=== PATIENT | female | born 1935 | race Caucasian/White ===

== ENCOUNTER 2016-09-04 14:51 | Outpatient (CLI) | payer MEDICARE, OTHER | END 2016-09-04 14:52 | disposition home or self-care (01) | DX: E66.2 Morbid (severe) obesity with alveolar hypoventilation (principal) ==

== ENCOUNTER 2016-09-13 | Outpatient (CLI) | payer MEDICARE, OTHER | END 2016-09-13 23:31 | disposition critical access hospital (66) | CPT/HCPCS: A0425; A0429 ==

== ENCOUNTER 2016-09-13 23:40 | Inpatient (IN) | payer MEDICARE, OTHER ==
[2016-09-14] MEDS ORDERED: MAG HYDROX/AL HYDROX/SIMETH 30 ML UDC PO STA (08:03)
[2016-09-14] MEDS ORDERED: OXYBUTYNIN 5MG TABLET PO PRN (08:11)
[2016-09-14] MEDS ORDERED: MAG HYDROX/AL HYDROX/SIMETH 30 ML UDC ONE (08:18)
[2016-09-14] MEDS ORDERED: METOPROLOL SUCCINATE 50 MG TABLET PO SCH (09:00)
[2016-09-14] MEDS ORDERED: ASCORBIC ACID CHEW 500 MG TABLET PO SCH (09:00)
[2016-09-14] MEDS ORDERED: cefTRIAXone 500 MG VIAL IVP SCH (09:00)
[2016-09-14] MEDS ORDERED: IOPAMIDOL-300 100 ML VIAL IVP ONE (09:28)
[2016-09-14] MEDS ORDERED: ZINC OXIDE 20% OINT 28.35 GM TUBE TOP ONE (09:59)
[2016-09-14] MEDS ORDERED: LEVOTHYROXINE 25 MCG TABLET PO SCH (10:00)
[2016-09-14] MEDS ORDERED: CHOLECALCIFEROL 5,000 UNIT CAPSULE PO SCH (10:00)
[2016-09-14] MEDS ORDERED: SODIUM CHLORIDE 0.9% IV SCH (10:00)
[2016-09-14] MEDS ORDERED: VANCOMYCIN PER PHARMACY IV SCH (10:00)
[2016-09-14] MEDS ORDERED: POTASSIUM CHLORIDE 10 MEQ CAPSULE PO SCH (10:00)
[2016-09-14] MEDS ORDERED: cefTRIAXone 1 GM in SODIUM CHLORIDE 0.9% MINIBAG 100 ML IV SCH (10:00)
[2016-09-14] MEDS ORDERED: LOSARTAN 50 MG TABLET PO SCH (10:00)
[2016-09-14] MEDS ORDERED: PANTOPRAZOLE 40 MG TABLET PO SCH (10:00)
[2016-09-14] MEDS ORDERED: buPROPion SR 150 MG TABLET PO SCH (10:00)
[2016-09-14] MEDS ORDERED: FUROSEMIDE 20 MG TABLET PO SCH (10:00)
[2016-09-14] MEDS ORDERED: diltiaZEM CD 120 MG CAPSULE PO SCH (10:00)
[2016-09-14] MEDS ORDERED: ASPIRIN EC 81 MG TABLET PO SCH (10:00)
[2016-09-14] MEDS: IPRATROPIUM/ALBUTEROL 3 ML NEB INH SCH ×3 (10:15→19:35)
[2016-09-14] MEDS: SODIUM CHLORIDE FLUSH 0.9% 10 ML SYRINGE IVP PRN (11:10)
[2016-09-14] MEDS: CEFEPIME 2 GM in SODIUM CHLORIDE 0.9% MINIBAG 100 ML IV SCH ×2 (11:11→21:44)
[2016-09-14] MEDS: LOSARTAN 50 MG TABLET PO SCH (12:26)
[2016-09-14] MEDS: FUROSEMIDE 20 MG TABLET PO SCH (12:26)
[2016-09-14] MEDS: POTASSIUM CHLORIDE 10 MEQ CAPSULE PO SCH (12:26)
[2016-09-14] MEDS: buPROPion SR 150 MG TABLET PO SCH ×2 (12:26→21:45)
[2016-09-14] MEDS: diltiaZEM CD 120 MG CAPSULE PO SCH (12:27)
[2016-09-14] MEDS: FERROUS SULFATE 325 MG TABLET PO SCH (12:27)
[2016-09-14] MEDS: METOPROLOL SUCCINATE 50 MG TABLET PO SCH ×2 (12:27→21:45)
[2016-09-14] MEDS: ASPIRIN EC 81 MG TABLET PO SCH (12:27)
[2016-09-14] MEDS: LEVOTHYROXINE 25 MCG TABLET PO SCH (12:27)
[2016-09-14] MEDS: PANTOPRAZOLE 40 MG TABLET PO SCH (12:27)
[2016-09-14] MEDS: CHOLECALCIFEROL 5,000 UNIT CAPSULE PO SCH (12:28)
[2016-09-14] MEDS: ASCORBIC ACID CHEW 500 MG TABLET PO SCH (12:28)
[2016-09-14] MEDS ORDERED: VANCOMYCIN INJ 2 GM in SODIUM CHLORIDE 0.9% 500 ML IV ONE (13:00)
[2016-09-14] MEDS: SODIUM CHLORIDE FLUSH 0.9% 10 ML SYRINGE IVP SCH ×2 (14:32→21:47)
[2016-09-14] MEDS: ATORVASTATIN 10 MG TABLET PO SCH (21:45)
[2016-09-14] MEDS: INSULIN ASPART 300 UNIT/3 ML PEN SUBQ SCH (21:47)
[2016-09-14] MEDS: INSULIN GLARGINE 300 UNIT/3 ML PEN SUBQ SCH (21:48)
[2016-09-14] MEDS ORDERED: FUROSEMIDE 20 MG/2 ML VIAL IVP SCH (22:07)
[2016-09-14] MEDS: ACETAMINOPHEN 325 MG TABLET PO PRN (23:06)
[2016-09-15] MEDS: LEVOTHYROXINE 25 MCG TABLET PO SCH (06:33)
[2016-09-15] MEDS: SODIUM CHLORIDE FLUSH 0.9% 10 ML SYRINGE IVP SCH ×3 (06:33→17:47)
[2016-09-15] MEDS: PANTOPRAZOLE 40 MG TABLET PO SCH (06:33)
[2016-09-15] MEDS: INSULIN ASPART 300 UNIT/3 ML PEN SUBQ SCH ×4 (07:02→22:19)
[2016-09-15] MEDS: IPRATROPIUM/ALBUTEROL 3 ML NEB INH SCH ×4 (09:36→20:58)
[2016-09-15] MEDS: FERROUS SULFATE 325 MG TABLET PO SCH (10:15)
[2016-09-15] MEDS: POTASSIUM CHLORIDE 10 MEQ CAPSULE PO SCH (10:15)
[2016-09-15] MEDS: MULTIVITAMIN TABLET PO SCH (10:15)
[2016-09-15] MEDS: CEFEPIME 2 GM in SODIUM CHLORIDE 0.9% MINIBAG 100 ML IV SCH ×2 (10:16→22:05)
[2016-09-15] MEDS: buPROPion SR 150 MG TABLET PO SCH ×2 (10:16→22:14)
[2016-09-15] MEDS: ASCORBIC ACID CHEW 500 MG TABLET PO SCH (10:16)
[2016-09-15] MEDS: ASPIRIN EC 81 MG TABLET PO SCH (10:16)
[2016-09-15] MEDS: CHOLECALCIFEROL 5,000 UNIT CAPSULE PO SCH (10:17)
[2016-09-15] MEDS: ENOXAPARIN 40 MG/0.4 ML SYRINGE SUBQ SCH (10:17)
[2016-09-15] MEDS: diltiaZEM CD 120 MG CAPSULE PO SCH (10:17)
[2016-09-15] MEDS: METOPROLOL SUCCINATE 50 MG TABLET PO SCH ×2 (10:18→22:14)
[2016-09-15] MEDS: LOSARTAN 50 MG TABLET PO SCH (10:18)
[2016-09-15] MEDS: FUROSEMIDE 20 MG TABLET PO SCH (10:18)
[2016-09-15] MEDS: MODAFINIL 100 MG PO SCH (10:21)
[2016-09-15] MEDS: POLYETHYLENE GLYCOL 3350 17 GM PACKET PO SCH (10:22)
[2016-09-15] MEDS: Vilazodone Hcl [Viibryd] 40 MG PO SCH (10:22)
[2016-09-15] MEDS: SODIUM CHLORIDE FLUSH 0.9% 10 ML SYRINGE IVP PRN ×2 (10:26→22:06)
[2016-09-15] MEDS: VANCOMYCIN 125 MG CAPSULE PO SCH ×3 (13:24→22:18)
[2016-09-15] MEDS: VANCOMYCIN INJ 1 GM, VANCOMYCIN INJ 500 MG in SODIUM CHLORIDE 0.9% 500 ML IV SCH (13:25)
[2016-09-15] MEDS: HYDROcod/ACETAM 5/325 MG TABLET PO PRN (14:22)
[2016-09-15] MEDS ORDERED: ZINC OXIDE 20% OINT 28.35 GM TUBE TOP ONE (17:24)
[2016-09-15] MEDS: ATORVASTATIN 10 MG TABLET PO SCH (22:13)
[2016-09-15] MEDS: INSULIN GLARGINE 300 UNIT/3 ML PEN SUBQ SCH (22:20)
[2016-09-16] MEDS: ACETAMINOPHEN 325 MG TABLET PO PRN ×2 (00:02→21:34)
[2016-09-16] MEDS: LEVOTHYROXINE 25 MCG TABLET PO SCH (06:53)
[2016-09-16] MEDS: PANTOPRAZOLE 40 MG TABLET PO SCH (06:53)
[2016-09-16] MEDS: SODIUM CHLORIDE FLUSH 0.9% 10 ML SYRINGE IVP SCH ×3 (06:54→21:33)
[2016-09-16] MEDS: IPRATROPIUM/ALBUTEROL 3 ML NEB INH SCH ×4 (07:40→20:13)
[2016-09-16] MEDS: CEFEPIME 2 GM in SODIUM CHLORIDE 0.9% MINIBAG 100 ML IV SCH ×2 (08:07→21:32)
[2016-09-16] MEDS: ENOXAPARIN 40 MG/0.4 ML SYRINGE SUBQ SCH (08:07)
[2016-09-16] MEDS: POTASSIUM CHLORIDE 10 MEQ CAPSULE PO SCH (08:08)
[2016-09-16] MEDS: MULTIVITAMIN TABLET PO SCH (08:08)
[2016-09-16] MEDS: FUROSEMIDE 40 MG/4 ML VIAL IVP SCH ×2 (08:08→13:33)
[2016-09-16] MEDS: FERROUS SULFATE 325 MG TABLET PO SCH (08:08)
[2016-09-16] MEDS: buPROPion SR 150 MG TABLET PO SCH ×2 (08:09→21:34)
[2016-09-16] MEDS: ASCORBIC ACID CHEW 500 MG TABLET PO SCH (08:09)
[2016-09-16] MEDS: LOSARTAN 50 MG TABLET PO SCH (08:10)
[2016-09-16] MEDS: METOPROLOL SUCCINATE 50 MG TABLET PO SCH ×2 (08:10→21:33)
[2016-09-16] MEDS: ASPIRIN EC 81 MG TABLET PO SCH (08:10)
[2016-09-16] MEDS: INSULIN ASPART 300 UNIT/3 ML PEN SUBQ SCH ×4 (08:10→21:35)
[2016-09-16] MEDS: CHOLECALCIFEROL 5,000 UNIT CAPSULE PO SCH (08:10)
[2016-09-16] MEDS: diltiaZEM CD 120 MG CAPSULE PO SCH (08:10)
[2016-09-16] MEDS: VANCOMYCIN 125 MG CAPSULE PO SCH ×4 (08:32→21:33)
[2016-09-16] MEDS: Vilazodone Hcl [Viibryd] 40 MG PO SCH (09:49)
[2016-09-16] MEDS: MODAFINIL 100 MG PO SCH (10:52)
[2016-09-16] MEDS: POLYETHYLENE GLYCOL 3350 17 GM PACKET PO SCH ×2 (12:32→12:42)
[2016-09-16] MEDS: VANCOMYCIN INJ 1 GM, VANCOMYCIN INJ 500 MG in SODIUM CHLORIDE 0.9% 500 ML IV SCH (13:33)
[2016-09-16] MEDS: SODIUM CHLORIDE FLUSH 0.9% 10 ML SYRINGE IVP PRN ×2 (16:02→21:33)
[2016-09-16] MEDS: INSULIN GLARGINE 300 UNIT/3 ML PEN SUBQ SCH (21:34)
[2016-09-16] MEDS: ATORVASTATIN 10 MG TABLET PO SCH (21:34)
[2016-09-17] MEDS: HYDROcod/ACETAM 5/325 MG TABLET PO PRN ×2 (01:23→08:29)
[2016-09-17] MEDS: PANTOPRAZOLE 40 MG TABLET PO SCH (06:48)
[2016-09-17] MEDS: LEVOTHYROXINE 25 MCG TABLET PO SCH (06:49)
[2016-09-17] MEDS: FUROSEMIDE 40 MG/4 ML VIAL IVP SCH ×2 (06:49→13:53)
[2016-09-17] MEDS: SODIUM CHLORIDE FLUSH 0.9% 10 ML SYRINGE IVP SCH ×3 (06:49→16:20)
[2016-09-17] MEDS: IPRATROPIUM/ALBUTEROL 3 ML NEB INH SCH ×4 (07:15→20:00)
[2016-09-17] MEDS: INSULIN ASPART 300 UNIT/3 ML PEN SUBQ SCH ×4 (08:28→22:09)
[2016-09-17] MEDS: CEFEPIME 2 GM in SODIUM CHLORIDE 0.9% MINIBAG 100 ML IV SCH ×2 (08:28→21:51)
[2016-09-17] MEDS: POLYETHYLENE GLYCOL 3350 17 GM PACKET PO SCH (08:30)
[2016-09-17] MEDS: ENOXAPARIN 40 MG/0.4 ML SYRINGE SUBQ SCH (08:30)
[2016-09-17] MEDS: ACETAMINOPHEN 325 MG TABLET PO PRN ×2 (08:31→22:25)
[2016-09-17] MEDS: LOSARTAN 50 MG TABLET PO SCH (08:31)
[2016-09-17] MEDS: VANCOMYCIN 125 MG CAPSULE PO SCH ×4 (08:31→22:06)
[2016-09-17] MEDS: ASPIRIN EC 81 MG TABLET PO SCH (08:31)
[2016-09-17] MEDS: MULTIVITAMIN TABLET PO SCH (08:32)
[2016-09-17] MEDS: ASCORBIC ACID CHEW 500 MG TABLET PO SCH (08:32)
[2016-09-17] MEDS: FERROUS SULFATE 325 MG TABLET PO SCH (08:32)
[2016-09-17] MEDS: METOPROLOL SUCCINATE 50 MG TABLET PO SCH ×2 (08:32→21:45)
[2016-09-17] MEDS: diltiaZEM CD 120 MG CAPSULE PO SCH (08:32)
[2016-09-17] MEDS: POTASSIUM CHLORIDE 10 MEQ CAPSULE PO SCH (08:35)
[2016-09-17] MEDS: CHOLECALCIFEROL 5,000 UNIT CAPSULE PO SCH (08:53)
[2016-09-17] MEDS: MODAFINIL 100 MG PO SCH (08:53)
[2016-09-17] MEDS: buPROPion SR 150 MG TABLET PO SCH ×2 (08:53→21:45)
[2016-09-17] MEDS: Vilazodone Hcl [Viibryd] 40 MG PO SCH (08:54)
[2016-09-17] MEDS: VANCOMYCIN INJ 1 GM, VANCOMYCIN INJ 500 MG in SODIUM CHLORIDE 0.9% 500 ML IV SCH (13:58)
[2016-09-17] MEDS: ATORVASTATIN 10 MG TABLET PO SCH (21:45)
[2016-09-17] MEDS: INSULIN GLARGINE 300 UNIT/3 ML PEN SUBQ SCH (22:08)
[2016-09-18] MEDS: HYDROcod/ACETAM 5/325 MG TABLET PO PRN (01:54)
[2016-09-18] MEDS: LEVOTHYROXINE 25 MCG TABLET PO SCH (06:38)
[2016-09-18] MEDS: FUROSEMIDE 40 MG/4 ML VIAL IVP SCH ×2 (06:38→14:39)
[2016-09-18] MEDS: PANTOPRAZOLE 40 MG TABLET PO SCH (06:38)
[2016-09-18] MEDS: SODIUM CHLORIDE FLUSH 0.9% 10 ML SYRINGE IVP SCH ×3 (06:38→21:14)
[2016-09-18] MEDS: INSULIN ASPART 300 UNIT/3 ML PEN SUBQ SCH ×4 (08:24→21:11)
[2016-09-18] MEDS: IPRATROPIUM/ALBUTEROL 3 ML NEB INH SCH ×4 (08:30→20:10)
[2016-09-18] MEDS: POLYETHYLENE GLYCOL 3350 17 GM PACKET PO SCH (08:35)
[2016-09-18] MEDS: ASCORBIC ACID CHEW 500 MG TABLET PO SCH ×2 (08:53→09:11)
[2016-09-18] MEDS: POTASSIUM CHLORIDE 10 MEQ CAPSULE PO SCH (08:53)
[2016-09-18] MEDS: diltiaZEM CD 120 MG CAPSULE PO SCH (08:54)
[2016-09-18] MEDS: CHOLECALCIFEROL 5,000 UNIT CAPSULE PO SCH (08:54)
[2016-09-18] MEDS: buPROPion SR 150 MG TABLET PO SCH ×2 (08:54→21:10)
[2016-09-18] MEDS: MULTIVITAMIN TABLET PO SCH (08:54)
[2016-09-18] MEDS: VANCOMYCIN 125 MG CAPSULE PO SCH ×4 (08:54→21:11)
[2016-09-18] MEDS: LOSARTAN 50 MG TABLET PO SCH (08:54)
[2016-09-18] MEDS: ENOXAPARIN 40 MG/0.4 ML SYRINGE SUBQ SCH (08:55)
[2016-09-18] MEDS: ASPIRIN EC 81 MG TABLET PO SCH (08:55)
[2016-09-18] MEDS: METOPROLOL SUCCINATE 50 MG TABLET PO SCH ×2 (08:55→21:10)
[2016-09-18] MEDS: FERROUS SULFATE 325 MG TABLET PO SCH (08:55)
[2016-09-18] MEDS: CEFEPIME 2 GM in SODIUM CHLORIDE 0.9% MINIBAG 100 ML IV SCH ×2 (08:56→21:11)
[2016-09-18] MEDS: MODAFINIL 100 MG PO SCH (10:30)
[2016-09-18] MEDS: Vilazodone Hcl [Viibryd] 40 MG PO SCH (10:30)
[2016-09-18] MEDS: VANCOMYCIN INJ 1 GM, VANCOMYCIN INJ 500 MG in SODIUM CHLORIDE 0.9% 500 ML IV SCH (12:43)
[2016-09-18] MEDS: ATORVASTATIN 10 MG TABLET PO SCH (21:10)
[2016-09-18] MEDS: INSULIN GLARGINE 300 UNIT/3 ML PEN SUBQ SCH (21:12)
[2016-09-19] MEDS: FUROSEMIDE 40 MG/4 ML VIAL IVP SCH ×2 (06:59→13:31)
[2016-09-19] MEDS: LEVOTHYROXINE 25 MCG TABLET PO SCH (06:59)
[2016-09-19] MEDS: PANTOPRAZOLE 40 MG TABLET PO SCH (06:59)
[2016-09-19] MEDS: SODIUM CHLORIDE FLUSH 0.9% 10 ML SYRINGE IVP SCH ×3 (06:59→16:47)
[2016-09-19] MEDS: IPRATROPIUM/ALBUTEROL 3 ML NEB INH SCH ×4 (07:00→21:15)
[2016-09-19] MEDS: INSULIN ASPART 300 UNIT/3 ML PEN SUBQ SCH ×4 (08:09→20:46)
[2016-09-19] MEDS: CEFEPIME 2 GM in SODIUM CHLORIDE 0.9% MINIBAG 100 ML IV SCH ×2 (09:43→20:40)
[2016-09-19] MEDS: VANCOMYCIN 125 MG CAPSULE PO SCH ×4 (09:43→20:38)
[2016-09-19] MEDS: ENOXAPARIN 40 MG/0.4 ML SYRINGE SUBQ SCH (09:43)
[2016-09-19] MEDS: LOSARTAN 50 MG TABLET PO SCH (09:44)
[2016-09-19] MEDS: ASCORBIC ACID CHEW 500 MG TABLET PO SCH (09:44)
[2016-09-19] MEDS: diltiaZEM CD 120 MG CAPSULE PO SCH (09:44)
[2016-09-19] MEDS: MULTIVITAMIN TABLET PO SCH (09:45)
[2016-09-19] MEDS: buPROPion SR 150 MG TABLET PO SCH ×2 (09:45→20:38)
[2016-09-19] MEDS: POTASSIUM CHLORIDE 10 MEQ CAPSULE PO SCH (09:45)
[2016-09-19] MEDS: METOPROLOL SUCCINATE 50 MG TABLET PO SCH ×2 (09:45→20:38)
[2016-09-19] MEDS: ASPIRIN EC 81 MG TABLET PO SCH (09:46)
[2016-09-19] MEDS: CHOLECALCIFEROL 5,000 UNIT CAPSULE PO SCH (09:46)
[2016-09-19] MEDS: FERROUS SULFATE 325 MG TABLET PO SCH (09:46)
[2016-09-19] MEDS: POLYETHYLENE GLYCOL 3350 17 GM PACKET PO SCH (09:47)
[2016-09-19] MEDS: MODAFINIL 100 MG PO SCH (12:16)
[2016-09-19] MEDS: Vilazodone Hcl [Viibryd] 40 MG PO SCH (12:17)
[2016-09-19] MEDS: VANCOMYCIN INJ 1 GM, VANCOMYCIN INJ 500 MG in SODIUM CHLORIDE 0.9% 500 ML IV SCH (13:31)
[2016-09-19] MEDS: SACCHAROMYCES BOULARDII 250 MG CAPSULE PO SCH (16:46)
[2016-09-19] MEDS: ATORVASTATIN 10 MG TABLET PO SCH (20:37)
[2016-09-19] MEDS: SODIUM CHLORIDE FLUSH 0.9% 10 ML SYRINGE IVP PRN (20:42)
[2016-09-19] MEDS: INSULIN GLARGINE 300 UNIT/3 ML PEN SUBQ SCH (20:47)
[2016-09-19] MEDS: ACETAMINOPHEN 325 MG TABLET PO PRN (22:35)
[2016-09-20] MEDS: FUROSEMIDE 40 MG/4 ML VIAL IVP SCH ×2 (16:58→17:03)
[2016-09-20] MEDS: SODIUM CHLORIDE FLUSH 0.9% 10 ML SYRINGE IVP SCH ×3 (16:58→23:32)
[2016-09-20] MEDS: IPRATROPIUM/ALBUTEROL 3 ML NEB INH SCH ×4 (16:58→18:00)
[2016-09-20] MEDS: FERROUS SULFATE 325 MG TABLET PO SCH (16:59)
[2016-09-20] MEDS: POTASSIUM CHLORIDE 10 MEQ CAPSULE PO SCH (16:59)
[2016-09-20] MEDS: PANTOPRAZOLE 40 MG TABLET PO SCH (16:59)
[2016-09-20] MEDS: SACCHAROMYCES BOULARDII 250 MG CAPSULE PO SCH ×2 (16:59→18:21)
[2016-09-20] MEDS: LEVOTHYROXINE 25 MCG TABLET PO SCH (16:59)
[2016-09-20] MEDS: MULTIVITAMIN TABLET PO SCH (16:59)
[2016-09-20] MEDS: INSULIN ASPART 300 UNIT/3 ML PEN SUBQ SCH ×4 (16:59→21:10)
[2016-09-20] MEDS: ASPIRIN EC 81 MG TABLET PO SCH (17:00)
[2016-09-20] MEDS: ASCORBIC ACID CHEW 500 MG TABLET PO SCH (17:00)
[2016-09-20] MEDS: ENOXAPARIN 40 MG/0.4 ML SYRINGE SUBQ SCH (17:00)
[2016-09-20] MEDS: CHOLECALCIFEROL 5,000 UNIT CAPSULE PO SCH (17:00)
[2016-09-20] MEDS: CEFEPIME 2 GM in SODIUM CHLORIDE 0.9% MINIBAG 100 ML IV SCH ×2 (17:00→20:37)
[2016-09-20] MEDS: buPROPion SR 150 MG TABLET PO SCH ×2 (17:00→20:46)
[2016-09-20] MEDS: diltiaZEM CD 120 MG CAPSULE PO SCH (17:00)
[2016-09-20] MEDS: POLYETHYLENE GLYCOL 3350 17 GM PACKET PO SCH (17:01)
[2016-09-20] MEDS: METOPROLOL SUCCINATE 50 MG TABLET PO SCH ×2 (17:01→20:46)
[2016-09-20] MEDS: LOSARTAN 50 MG TABLET PO SCH (17:01)
[2016-09-20] MEDS: MODAFINIL 100 MG PO SCH (17:01)
[2016-09-20] MEDS: Vilazodone Hcl [Viibryd] 40 MG PO SCH (17:01)
[2016-09-20] MEDS: VANCOMYCIN 125 MG CAPSULE PO SCH ×4 (17:02→20:42)
[2016-09-20] MEDS: VANCOMYCIN INJ 1 GM, VANCOMYCIN INJ 500 MG in SODIUM CHLORIDE 0.9% 500 ML IV SCH (17:02)
[2016-09-20] MEDS: ATORVASTATIN 10 MG TABLET PO SCH (20:45)
[2016-09-20] MEDS: INSULIN GLARGINE 300 UNIT/3 ML PEN SUBQ SCH (21:05)
[2016-09-21] MEDS ORDERED: FUROSEMIDE 40 MG/4 ML VIAL IVP STA (06:08)
[2016-09-21] MEDS ORDERED: FUROSEMIDE 20 MG/2 ML VIAL IVP ONE (06:11)
[2016-09-21] MEDS ORDERED: FUROSEMIDE 40 MG/4 ML VIAL IVP SCH (06:26)
[2016-09-21] MEDS: SODIUM CHLORIDE FLUSH 0.9% 10 ML SYRINGE IVP SCH ×3 (06:56→21:46)
[2016-09-21] MEDS: FUROSEMIDE 40 MG/4 ML VIAL IVP SCH ×2 (06:59→15:02)
[2016-09-21] MEDS: IPRATROPIUM/ALBUTEROL 3 ML NEB INH SCH ×4 (07:00→22:00)
[2016-09-21] MEDS: LEVOTHYROXINE 25 MCG TABLET PO SCH (07:17)
[2016-09-21] MEDS: PANTOPRAZOLE 40 MG TABLET PO SCH (07:17)
[2016-09-21] MEDS ORDERED: MIN OIL/DIMETHICON/COCONUT OIL 92 GM TUBE TOP ONE (08:51)
[2016-09-21] MEDS: CHOLECALCIFEROL 5,000 UNIT CAPSULE PO SCH (09:38)
[2016-09-21] MEDS: POTASSIUM CHLORIDE 10 MEQ CAPSULE PO SCH (09:38)
[2016-09-21] MEDS: SACCHAROMYCES BOULARDII 250 MG CAPSULE PO SCH ×2 (09:38→16:22)
[2016-09-21] MEDS: FERROUS SULFATE 325 MG TABLET PO SCH (09:38)
[2016-09-21] MEDS: VANCOMYCIN 125 MG CAPSULE PO SCH ×4 (09:38→21:44)
[2016-09-21] MEDS: CEFEPIME 2 GM in SODIUM CHLORIDE 0.9% MINIBAG 100 ML IV SCH (09:39)
[2016-09-21] MEDS: buPROPion SR 150 MG TABLET PO SCH ×2 (09:39→21:45)
[2016-09-21] MEDS: ASCORBIC ACID CHEW 500 MG TABLET PO SCH (09:39)
[2016-09-21] MEDS: MULTIVITAMIN TABLET PO SCH (09:39)
[2016-09-21] MEDS: ENOXAPARIN 40 MG/0.4 ML SYRINGE SUBQ SCH (09:39)
[2016-09-21] MEDS: ASPIRIN EC 81 MG TABLET PO SCH (09:39)
[2016-09-21] MEDS: POLYETHYLENE GLYCOL 3350 17 GM PACKET PO SCH (09:40)
[2016-09-21] MEDS: MODAFINIL 100 MG PO SCH (09:40)
[2016-09-21] MEDS: Vilazodone Hcl [Viibryd] 40 MG PO SCH (09:40)
[2016-09-21] MEDS: INSULIN ASPART 300 UNIT/3 ML PEN SUBQ SCH ×4 (09:41→21:45)
[2016-09-21] MEDS: diltiaZEM CD 120 MG CAPSULE PO SCH (09:43)
[2016-09-21] MEDS: LOSARTAN 50 MG TABLET PO SCH (09:43)
[2016-09-21] MEDS: METOPROLOL SUCCINATE 50 MG TABLET PO SCH ×2 (09:43→21:44)
[2016-09-21] MEDS: VANCOMYCIN INJ 1 GM, VANCOMYCIN INJ 500 MG in SODIUM CHLORIDE 0.9% 500 ML IV SCH (13:23)
[2016-09-21] MEDS: ATORVASTATIN 10 MG TABLET PO SCH (21:45)
[2016-09-21] MEDS: INSULIN GLARGINE 300 UNIT/3 ML PEN SUBQ SCH (21:45)
[2016-09-22] MEDS: LEVOTHYROXINE 25 MCG TABLET PO SCH (06:14)
[2016-09-22] MEDS: FUROSEMIDE 40 MG/4 ML VIAL IVP SCH ×2 (06:14→15:16)
[2016-09-22] MEDS: SODIUM CHLORIDE FLUSH 0.9% 10 ML SYRINGE IVP SCH ×3 (06:14→22:08)
[2016-09-22] MEDS: PANTOPRAZOLE 40 MG TABLET PO SCH (06:15)
[2016-09-22] MEDS: SACCHAROMYCES BOULARDII 250 MG CAPSULE PO SCH ×2 (08:53→17:40)
[2016-09-22] MEDS: MODAFINIL 100 MG PO SCH (08:53)
[2016-09-22] MEDS: ASCORBIC ACID CHEW 500 MG TABLET PO SCH (08:53)
[2016-09-22] MEDS: CHOLECALCIFEROL 5,000 UNIT CAPSULE PO SCH (08:53)
[2016-09-22] MEDS: POTASSIUM CHLORIDE 10 MEQ CAPSULE PO SCH (08:53)
[2016-09-22] MEDS: LOSARTAN 50 MG TABLET PO SCH (08:54)
[2016-09-22] MEDS: METOPROLOL SUCCINATE 50 MG TABLET PO SCH ×2 (08:54→22:07)
[2016-09-22] MEDS: VANCOMYCIN 125 MG CAPSULE PO SCH ×4 (08:54→22:07)
[2016-09-22] MEDS: FERROUS SULFATE 325 MG TABLET PO SCH (08:54)
[2016-09-22] MEDS: ENOXAPARIN 40 MG/0.4 ML SYRINGE SUBQ SCH (08:55)
[2016-09-22] MEDS: ASPIRIN EC 81 MG TABLET PO SCH (08:55)
[2016-09-22] MEDS: buPROPion SR 150 MG TABLET PO SCH ×2 (08:55→22:07)
[2016-09-22] MEDS: diltiaZEM CD 120 MG CAPSULE PO SCH (08:55)
[2016-09-22] MEDS: INSULIN ASPART 300 UNIT/3 ML PEN SUBQ SCH ×2 (08:56→11:45)
[2016-09-22] MEDS: MULTIVITAMIN TABLET PO SCH (08:59)
[2016-09-22] MEDS: POLYETHYLENE GLYCOL 3350 17 GM PACKET PO SCH (09:00)
[2016-09-22] MEDS: Vilazodone Hcl [Viibryd] 40 MG PO SCH (09:00)
[2016-09-22] MEDS: IPRATROPIUM/ALBUTEROL 3 ML NEB INH SCH ×4 (09:20→20:35)
[2016-09-22] MEDS ORDERED: INSULIN ASPART 300 UNIT/3 ML PEN SUBQ SCH (17:00)
[2016-09-22] MEDS: INSU100I18 SUBQ SCH ×2 (17:40→22:08)
[2016-09-22] MEDS: ATORVASTATIN 10 MG TABLET PO SCH (22:07)
[2016-09-22] MEDS: INSULIN GLARGINE 300 UNIT/3 ML PEN SUBQ SCH (22:08)
[2016-09-23] MEDS: ACETAMINOPHEN 325 MG TABLET PO PRN (01:11)
[2016-09-23] MEDS: FUROSEMIDE 40 MG/4 ML VIAL IVP SCH ×2 (06:31→14:01)
[2016-09-23] MEDS: LEVOTHYROXINE 25 MCG TABLET PO SCH (06:31)
[2016-09-23] MEDS: PANTOPRAZOLE 40 MG TABLET PO SCH (06:31)
[2016-09-23] MEDS: SODIUM CHLORIDE FLUSH 0.9% 10 ML SYRINGE IVP SCH ×3 (06:31→21:42)
[2016-09-23] MEDS: INSU100I18 SUBQ SCH ×4 (08:48→20:47)
[2016-09-23] MEDS: IPRATROPIUM/ALBUTEROL 3 ML NEB INH SCH ×4 (09:45→20:10)
[2016-09-23] MEDS: diltiaZEM CD 120 MG CAPSULE PO SCH (10:10)
[2016-09-23] MEDS: VANCOMYCIN 125 MG CAPSULE PO SCH ×4 (10:10→20:43)
[2016-09-23] MEDS: CHOLECALCIFEROL 5,000 UNIT CAPSULE PO SCH (10:11)
[2016-09-23] MEDS: METOPROLOL SUCCINATE 50 MG TABLET PO SCH ×2 (10:11→20:43)
[2016-09-23] MEDS: FERROUS SULFATE 325 MG TABLET PO SCH (10:11)
[2016-09-23] MEDS: buPROPion SR 150 MG TABLET PO SCH ×2 (10:11→20:43)
[2016-09-23] MEDS: SACCHAROMYCES BOULARDII 250 MG CAPSULE PO SCH ×2 (10:11→16:45)
[2016-09-23] MEDS: ASPIRIN EC 81 MG TABLET PO SCH (10:12)
[2016-09-23] MEDS: MAGNESIUM OXIDE 400 MG TABLET PO SCH (10:12)
[2016-09-23] MEDS: MULTIVITAMIN TABLET PO SCH (10:12)
[2016-09-23] MEDS: LOSARTAN 50 MG TABLET PO SCH (10:12)
[2016-09-23] MEDS: ENOXAPARIN 40 MG/0.4 ML SYRINGE SUBQ SCH (10:12)
[2016-09-23] MEDS: POTASSIUM CHLORIDE 10 MEQ CAPSULE PO SCH ×3 (10:12→21:41)
[2016-09-23] MEDS: MODAFINIL 100 MG PO SCH (10:13)
[2016-09-23] MEDS: POLYETHYLENE GLYCOL 3350 17 GM PACKET PO SCH (10:13)
[2016-09-23] MEDS: Vilazodone Hcl [Viibryd] 40 MG PO SCH (10:13)
[2016-09-23] MEDS: ASCORBIC ACID CHEW 500 MG TABLET PO SCH (10:14)
[2016-09-23] MEDS: ATORVASTATIN 10 MG TABLET PO SCH (20:42)
[2016-09-23] MEDS: INSULIN GLARGINE 300 UNIT/3 ML PEN SUBQ SCH (20:43)
[2016-09-23] MEDS: INSULIN ASPART 300 UNIT/3 ML PEN SUBQ SCH (21:41)
[2016-09-23] MEDS ORDERED: LORazepam 2 MG/ML SYRINGE IVP PRN (23:00)
[2016-09-24] MEDS: SODIUM CHLORIDE FLUSH 0.9% 10 ML SYRINGE IVP PRN (00:50)
[2016-09-24] MEDS: FUROSEMIDE 40 MG/4 ML VIAL IVP SCH ×2 (07:03→13:34)
[2016-09-24] MEDS: PANTOPRAZOLE 40 MG TABLET PO SCH (07:04)
[2016-09-24] MEDS: SODIUM CHLORIDE FLUSH 0.9% 10 ML SYRINGE IVP SCH ×3 (07:04→21:34)
[2016-09-24] MEDS: LEVOTHYROXINE 25 MCG TABLET PO SCH (07:04)
[2016-09-24] MEDS: POTASSIUM CHLORIDE 10 MEQ CAPSULE PO SCH ×3 (07:04→21:32)
[2016-09-24] MEDS: IPRATROPIUM/ALBUTEROL 3 ML NEB INH SCH ×4 (07:15→19:50)
[2016-09-24] MEDS: FERROUS SULFATE 325 MG TABLET PO SCH (08:30)
[2016-09-24] MEDS: buPROPion SR 150 MG TABLET PO SCH ×2 (08:30→21:33)
[2016-09-24] MEDS: ACETAMINOPHEN 325 MG TABLET PO PRN (08:30)
[2016-09-24] MEDS: LOSARTAN 50 MG TABLET PO SCH (08:31)
[2016-09-24] MEDS: METOPROLOL SUCCINATE 50 MG TABLET PO SCH ×2 (08:31→21:32)
[2016-09-24] MEDS: MULTIVITAMIN TABLET PO SCH (08:32)
[2016-09-24] MEDS: ASPIRIN EC 81 MG TABLET PO SCH (08:32)
[2016-09-24] MEDS: VANCOMYCIN 125 MG CAPSULE PO SCH ×4 (08:33→21:38)
[2016-09-24] MEDS: MAGNESIUM OXIDE 400 MG TABLET PO SCH (08:34)
[2016-09-24] MEDS: CHOLECALCIFEROL 5,000 UNIT CAPSULE PO SCH (08:35)
[2016-09-24] MEDS: diltiaZEM CD 120 MG CAPSULE PO SCH (08:35)
[2016-09-24] MEDS: SACCHAROMYCES BOULARDII 250 MG CAPSULE PO SCH ×2 (08:35→17:17)
[2016-09-24] MEDS: INSULIN ASPART 300 UNIT/3 ML PEN SUBQ SCH ×4 (08:36→21:33)
[2016-09-24] MEDS: ENOXAPARIN 40 MG/0.4 ML SYRINGE SUBQ SCH (08:37)
[2016-09-24] MEDS: POLYETHYLENE GLYCOL 3350 17 GM PACKET PO SCH (08:39)
[2016-09-24] MEDS: Vilazodone Hcl [Viibryd] 40 MG PO SCH (08:39)
[2016-09-24] MEDS: MODAFINIL 100 MG PO SCH (08:39)
[2016-09-24] MEDS: ASCORBIC ACID CHEW 500 MG TABLET PO SCH (08:40)
[2016-09-24] MEDS: ATORVASTATIN 10 MG TABLET PO SCH (21:32)
[2016-09-24] MEDS: INSULIN GLARGINE 300 UNIT/3 ML PEN SUBQ SCH (21:33)
[2016-09-25] MEDS ORDERED: ASPIRIN 325 MG TABLET PO STA (01:10)
[2016-09-25] MEDS: POTASSIUM CHLORIDE 10 MEQ CAPSULE PO SCH ×3 (06:05→21:05)
[2016-09-25] MEDS: LEVOTHYROXINE 25 MCG TABLET PO SCH (06:06)
[2016-09-25] MEDS: SODIUM CHLORIDE FLUSH 0.9% 10 ML SYRINGE IVP SCH ×3 (06:06→21:06)
[2016-09-25] MEDS: PANTOPRAZOLE 40 MG TABLET PO SCH (06:06)
[2016-09-25] MEDS: FUROSEMIDE 40 MG/4 ML VIAL IVP SCH ×2 (07:17→10:37)
[2016-09-25] MEDS: IPRATROPIUM/ALBUTEROL 3 ML NEB INH SCH ×4 (07:30→21:15)
[2016-09-25] MEDS: ASCORBIC ACID CHEW 500 MG TABLET PO SCH (09:01)
[2016-09-25] MEDS: VANCOMYCIN 125 MG CAPSULE PO SCH ×4 (09:04→21:04)
[2016-09-25] MEDS: MAGNESIUM OXIDE 400 MG TABLET PO SCH (09:05)
[2016-09-25] MEDS: diltiaZEM CD 120 MG CAPSULE PO SCH (09:05)
[2016-09-25] MEDS: MULTIVITAMIN TABLET PO SCH (09:05)
[2016-09-25] MEDS: ASPIRIN EC 81 MG TABLET PO SCH (09:06)
[2016-09-25] MEDS: FERROUS SULFATE 325 MG TABLET PO SCH (09:06)
[2016-09-25] MEDS: METOPROLOL SUCCINATE 50 MG TABLET PO SCH ×2 (09:07→21:04)
[2016-09-25] MEDS: buPROPion SR 150 MG TABLET PO SCH ×2 (09:16→21:04)
[2016-09-25] MEDS: LOSARTAN 50 MG TABLET PO SCH (09:17)
[2016-09-25] MEDS: SACCHAROMYCES BOULARDII 250 MG CAPSULE PO SCH ×2 (09:17→16:50)
[2016-09-25] MEDS: ENOXAPARIN 40 MG/0.4 ML SYRINGE SUBQ SCH (09:18)
[2016-09-25] MEDS: INSULIN ASPART 300 UNIT/3 ML PEN SUBQ SCH ×4 (09:18→21:05)
[2016-09-25] MEDS: CHOLECALCIFEROL 5,000 UNIT CAPSULE PO SCH (09:24)
[2016-09-25] MEDS: MODAFINIL 100 MG PO SCH (09:26)
[2016-09-25] MEDS: Vilazodone Hcl [Viibryd] 40 MG PO SCH (09:26)
[2016-09-25] MEDS: POLYETHYLENE GLYCOL 3350 17 GM PACKET PO SCH (09:26)
[2016-09-25] MEDS: ATORVASTATIN 10 MG TABLET PO SCH (21:04)
[2016-09-26] MEDS: HYDROcod/ACETAM 5/325 MG TABLET PO PRN (00:43)
[2016-09-26] MEDS: LEVOTHYROXINE 25 MCG TABLET PO SCH (06:40)
[2016-09-26] MEDS: SODIUM CHLORIDE FLUSH 0.9% 10 ML SYRINGE IVP SCH ×3 (06:40→20:23)
[2016-09-26] MEDS: POTASSIUM CHLORIDE 10 MEQ CAPSULE PO SCH ×2 (06:40→13:11)
[2016-09-26] MEDS: PANTOPRAZOLE 40 MG TABLET PO SCH (06:42)
[2016-09-26] MEDS: IPRATROPIUM/ALBUTEROL 3 ML NEB INH SCH ×4 (07:18→18:12)
[2016-09-26] MEDS: INSULIN GLARGINE 300 UNIT/3 ML PEN SUBQ SCH (07:55)
[2016-09-26] MEDS: INSULIN ASPART 300 UNIT/3 ML PEN SUBQ SCH ×4 (07:56→20:21)
[2016-09-26] MEDS: VANCOMYCIN 125 MG CAPSULE PO SCH ×4 (09:01→20:22)
[2016-09-26] MEDS: METOPROLOL SUCCINATE 50 MG TABLET PO SCH ×2 (09:01→20:22)
[2016-09-26] MEDS: CHOLECALCIFEROL 5,000 UNIT CAPSULE PO SCH (09:02)
[2016-09-26] MEDS: ASPIRIN EC 81 MG TABLET PO SCH (09:02)
[2016-09-26] MEDS: FERROUS SULFATE 325 MG TABLET PO SCH (09:02)
[2016-09-26] MEDS: MAGNESIUM OXIDE 400 MG TABLET PO SCH (09:02)
[2016-09-26] MEDS: LOSARTAN 50 MG TABLET PO SCH (09:03)
[2016-09-26] MEDS: diltiaZEM CD 120 MG CAPSULE PO SCH (09:03)
[2016-09-26] MEDS: buPROPion SR 150 MG TABLET PO SCH ×2 (09:03→20:22)
[2016-09-26] MEDS: MULTIVITAMIN TABLET PO SCH (09:03)
[2016-09-26] MEDS: SACCHAROMYCES BOULARDII 250 MG CAPSULE PO SCH ×2 (09:04→16:50)
[2016-09-26] MEDS: FUROSEMIDE 40 MG/4 ML VIAL IVP SCH (09:07)
[2016-09-26] MEDS: ENOXAPARIN 40 MG/0.4 ML SYRINGE SUBQ SCH (09:09)
[2016-09-26] MEDS: MODAFINIL 100 MG PO SCH (09:13)
[2016-09-26] MEDS: ASCORBIC ACID CHEW 500 MG TABLET PO SCH (09:13)
[2016-09-26] MEDS: POLYETHYLENE GLYCOL 3350 17 GM PACKET PO SCH (09:13)
[2016-09-26] MEDS: Vilazodone Hcl [Viibryd] 40 MG PO SCH (09:13)
[2016-09-26] MEDS: NITROFURANTOIN MACRO 100 MG CAPSULE PO SCH ×2 (11:03→20:22)
[2016-09-26] MEDS: ATORVASTATIN 10 MG TABLET PO SCH (20:22)
[2016-09-26] MEDS ORDERED: LORazepam 2 MG/ML SYRINGE IVP STA (23:50)
[2016-09-26] MEDS ORDERED: LORazepam 0.5 MG TABLET PO PRN (23:50)
[2016-09-27] MEDS: SODIUM CHLORIDE FLUSH 0.9% 10 ML SYRINGE IVP PRN (00:06)
[2016-09-27] MEDS: SODIUM CHLORIDE FLUSH 0.9% 10 ML SYRINGE IVP SCH ×3 (06:30→21:50)
[2016-09-27] MEDS: PANTOPRAZOLE 40 MG TABLET PO SCH (06:31)
[2016-09-27] MEDS: LEVOTHYROXINE 25 MCG TABLET PO SCH (06:31)
[2016-09-27] MEDS: IPRATROPIUM/ALBUTEROL 3 ML NEB INH SCH ×4 (08:00→19:30)
[2016-09-27] MEDS: INSULIN ASPART 300 UNIT/3 ML PEN SUBQ SCH ×4 (08:24→21:48)
[2016-09-27] MEDS: INSULIN GLARGINE 300 UNIT/3 ML PEN SUBQ SCH (08:25)
[2016-09-27] MEDS: SACCHAROMYCES BOULARDII 250 MG CAPSULE PO SCH ×2 (09:23→17:09)
[2016-09-27] MEDS: VANCOMYCIN 125 MG CAPSULE PO SCH ×4 (09:23→21:49)
[2016-09-27] MEDS: ASCORBIC ACID CHEW 500 MG TABLET PO SCH (09:23)
[2016-09-27] MEDS: FERROUS SULFATE 325 MG TABLET PO SCH (09:23)
[2016-09-27] MEDS: POTASSIUM CHLORIDE 10 MEQ CAPSULE PO SCH (09:24)
[2016-09-27] MEDS: MAGNESIUM OXIDE 400 MG TABLET PO SCH (09:24)
[2016-09-27] MEDS: CHOLECALCIFEROL 5,000 UNIT CAPSULE PO SCH (09:24)
[2016-09-27] MEDS: METOPROLOL SUCCINATE 50 MG TABLET PO SCH (09:24)
[2016-09-27] MEDS: LOSARTAN 50 MG TABLET PO SCH (09:24)
[2016-09-27] MEDS: diltiaZEM CD 120 MG CAPSULE PO SCH (09:25)
[2016-09-27] MEDS: NITROFURANTOIN MACRO 100 MG CAPSULE PO SCH ×2 (09:25→21:49)
[2016-09-27] MEDS: ENOXAPARIN 40 MG/0.4 ML SYRINGE SUBQ SCH (09:25)
[2016-09-27] MEDS: MULTIVITAMIN TABLET PO SCH (09:25)
[2016-09-27] MEDS: ASPIRIN EC 81 MG TABLET PO SCH (09:25)
[2016-09-27] MEDS: buPROPion SR 150 MG TABLET PO SCH ×2 (09:25→21:50)
[2016-09-27] MEDS: MODAFINIL 100 MG PO SCH (09:26)
[2016-09-27] MEDS: FUROSEMIDE 40 MG/4 ML VIAL IVP SCH (09:26)
[2016-09-27] MEDS: POLYETHYLENE GLYCOL 3350 17 GM PACKET PO SCH (09:27)
[2016-09-27] MEDS: Vilazodone Hcl [Viibryd] 40 MG PO SCH (09:27)
[2016-09-27] MEDS ORDERED: ZOLPIDEM 5 MG TABLET PO PRN (09:35)
[2016-09-27] MEDS: ATORVASTATIN 10 MG TABLET PO SCH (21:49)
[2016-09-28] MEDS: SODIUM CHLORIDE FLUSH 0.9% 10 ML SYRINGE IVP SCH (05:48)
[2016-09-28] MEDS: HYDROcod/ACETAM 5/325 MG TABLET PO PRN (05:48)
[2016-09-28] MEDS: LEVOTHYROXINE 25 MCG TABLET PO SCH (05:48)
[2016-09-28] MEDS: PANTOPRAZOLE 40 MG TABLET PO SCH (05:49)
[2016-09-28] MEDS: IPRATROPIUM/ALBUTEROL 3 ML NEB INH SCH (07:50)
[2016-09-28] MEDS: INSULIN ASPART 300 UNIT/3 ML PEN SUBQ SCH (08:18)
[2016-09-28] MEDS: INSULIN GLARGINE 300 UNIT/3 ML PEN SUBQ SCH (08:18)
[2016-09-28] MEDS ORDERED: METOPROLOL SUCCINATE 50 MG TABLET PO SCH (09:00)
[2016-09-28] MEDS: FUROSEMIDE 40 MG/4 ML VIAL IVP SCH (09:17)
[2016-09-28] MEDS: ASCORBIC ACID CHEW 500 MG TABLET PO SCH (09:17)
[2016-09-28] MEDS: VANCOMYCIN 125 MG CAPSULE PO SCH (09:18)
[2016-09-28] MEDS: MODAFINIL 100 MG PO SCH (09:18)
[2016-09-28] MEDS: CHOLECALCIFEROL 5,000 UNIT CAPSULE PO SCH (09:19)
[2016-09-28] MEDS: POTASSIUM CHLORIDE 10 MEQ CAPSULE PO SCH (09:19)
[2016-09-28] MEDS: LOSARTAN 50 MG TABLET PO SCH (09:19)
[2016-09-28] MEDS: ENOXAPARIN 40 MG/0.4 ML SYRINGE SUBQ SCH (09:19)
[2016-09-28] MEDS: NITROFURANTOIN MACRO 100 MG CAPSULE PO SCH (09:20)
[2016-09-28] MEDS: diltiaZEM CD 120 MG CAPSULE PO SCH (09:20)
[2016-09-28] MEDS: ASPIRIN EC 81 MG TABLET PO SCH (09:20)
[2016-09-28] MEDS: MULTIVITAMIN TABLET PO SCH (09:20)
[2016-09-28] MEDS: MAGNESIUM OXIDE 400 MG TABLET PO SCH (09:21)
[2016-09-28] MEDS: Vilazodone Hcl [Viibryd] 40 MG PO SCH (09:21)
[2016-09-28] MEDS: SACCHAROMYCES BOULARDII 250 MG CAPSULE PO SCH (09:21)
[2016-09-28] MEDS: FERROUS SULFATE 325 MG TABLET PO SCH (09:21)
[2016-09-28] MEDS: buPROPion SR 150 MG TABLET PO SCH (09:21)
[2016-09-28] MEDS: POLYETHYLENE GLYCOL 3350 17 GM PACKET PO SCH (09:22)
== END 2016-09-28 11:30 | DRG 189 ==
DX: J96.21 Acute and chronic respiratory failure with hypoxia (principal); J18.9 Pneumonia, unspecified organism; N30.01 Acute cystitis with hematuria; E11.9 Type 2 diabetes mellitus without complications; J96.10 Chronic respiratory failure, unspecified whether with hypoxia or hypercapnia; I50.43 Acute on chronic combined systolic (congestive) and diastolic (congestive) heart failure; E66.2 Morbid (severe) obesity with alveolar hypoventilation; L03.115 Cellulitis of right lower limb; A04.7 Enterocolitis due to Clostridium difficile; L03.317 Cellulitis of buttock; J96.22 Acute and chronic respiratory failure with hypercapnia; Z99.81 Dependence on supplemental oxygen; E11.65 Type 2 diabetes mellitus with hyperglycemia; Z79.4 Long term (current) use of insulin; I27.2 Other secondary pulmonary hypertension; Y95 Nosocomial condition; Z88.0 Allergy status to penicillin; Z88.2 Allergy status to sulfonamides; Z79.82 Long term (current) use of aspirin; E03.9 Hypothyroidism, unspecified; E66.01 Morbid (severe) obesity due to excess calories; F32.9 Major depressive disorder, single episode, unspecified; Z96.659 Presence of unspecified artificial knee joint; Z82.49 Family history of ischemic heart disease and other diseases of the circulatory system; Z83.3 Family history of diabetes mellitus; Z80.3 Family history of malignant neoplasm of breast; Z66 Do not resuscitate; I11.0 Hypertensive heart disease with heart failure; G47.33 Obstructive sleep apnea (adult) (pediatric); E11.36 Type 2 diabetes mellitus with diabetic cataract; F41.0 Panic disorder [episodic paroxysmal anxiety]; Z68.33 Body mass index [BMI] 33.0-33.9, adult

== ENCOUNTER 2016-09-30 19:50 | Outpatient (CLI) | payer MEDICARE, OTHER | END 2016-09-30 19:51 | disposition home or self-care (01) | DX: R79.89 Other specified abnormal findings of blood chemistry (principal) ==